=== PATIENT | male | born 1945 ===

== ENCOUNTER 2018-10-07 10:19 | Day surgery (SDC) | payer MEDICARE ==
[~2018-10-07] VITALS: Ht 177.8 cm; Wt 84.8 kg
[~2018-10-07 10:19] MED LIST: ALFU10 PO; ASPI81CH; ATORVASTATIN CA20 MG PO; CLOP75 PO; METO25ER; NEBI5 PO; PRAV20; SERT50 PO
--- NOTE | 2018-10-07 10:45 | NUR ---
10/07/18 1045 Gillian Prater 1 MISSWED IV IN RW BY АНДРЕЙ VALVE 1 MISSID IV IN LAC BY АНДРЕЙ VALVE 1 GOOD IV IN LFA BY [facility] PT TOW
--- NOTE | 2018-10-07 11:12 | NUR ---
10/07/18 1112 Tana Renteria PT OXYGEN SAT DROPPED TO LOWS 80S. DR BALDERAS NOTIFIED. SWITCHED O2 NC TO POM MASK PER DR BALDERAS. SECOND NURSE REQUESTED FOR AIRWAY SUPPORT. ORSC.DFT IN TO HELP. O2 JUMPED BACK UP TO 90S WITH POM MASK.
--- NOTE | 2018-10-07 11:56 | NUR ---
10/07/18 1156 Renetta New PATIENT VERY SLEEPY DUE TO THE USE OF FENTANYL AND VERSED FOR EGD SEDATION. PATIENT HAS SIGNS OF SIGNIFICANT OBSTRUCTIVE SLEEP APNEA. PATIENT'S VITALS ARE STABLE AND O2 SAT 96% ON ROOM AIR WHEN AWAKE BUT FALLS TO SLEEP AND OBSTRUCTS AND O2 SATS WILL GO DOWN TO 88-89%. CARE TRANSFERRED TO [facility] FOR LONGER STEP DOWN RECOVERY. PATIENT STABLE AND ANSWERS QUESTIONS APPROPRIATELY WHEN AWAKE BUT UNABLE TO STAY AWAKE AT THIS TIME.
== END 2018-10-07 12:45 | disposition home or self-care (01) ==
LOC: ORSCSDS 10:19
PROVIDERS: Internal Medicine Gastroenterology
PROC: 0DB58ZX Excision of Esophagus, Via Natural or Artificial Opening Endoscopic, Diagnostic (ICD-10-PCS; principal; 2018-10-07 11:45)
PROC: 0DB68ZX Excision of Stomach, Via Natural or Artificial Opening Endoscopic, Diagnostic (ICD-10-PCS; principal; 2018-10-07 11:45)
PROC: 0D758ZZ Dilation of Esophagus, Via Natural or Artificial Opening Endoscopic (ICD-10-PCS; principal; 2018-10-07 11:45)
DX: K21.9 Gastro-esophageal reflux disease without esophagitis (principal); K29.70 Gastritis, unspecified, without bleeding; R09.89 Other specified symptoms and signs involving the circulatory and respiratory systems; K20.9 Esophagitis, unspecified; K22.2 Esophageal obstruction; K44.9 Diaphragmatic hernia without obstruction or gangrene; Z87.891 Personal history of nicotine dependence; G47.33 Obstructive sleep apnea (adult) (pediatric); E03.9 Hypothyroidism, unspecified; I25.10 Atherosclerotic heart disease of native coronary artery without angina pectoris; E78.5 Hyperlipidemia, unspecified; Z79.899 Other long term (current) drug therapy; Z79.82 Long term (current) use of aspirin
CPT/HCPCS: 88305; 88342; J2250; J2704; J3010; J7120

== ENCOUNTER 2021-10-04 06:46 | Day surgery (SDC) | payer MEDICARE ==
[~2021-10-04] VITALS: Ht 177.8 cm; Wt 86.9 kg
[~2021-10-04 06:46] MED LIST changes: +AMLO5 PO; +Aspir 8181 MG PO
--- NOTE | 2021-10-04 07:33 | NUR ---
10/04/21 0733 CRISTINE RED 2 ATTEMPTS AT IV. FIRST ATTEMPT BY MA IN R HAND INFILTRATED. SECOND ATTEMPT AT IV BY MA IN R FOREARM SUCCESSFUL.
== END 2021-10-04 08:46 | disposition home or self-care (01) ==
LOC: ORSCSDS 06:46
PROVIDERS: Internal Medicine Gastroenterology
PROC: 0DJ08ZZ Inspection of Upper Intestinal Tract, Via Natural or Artificial Opening Endoscopic (ICD-10-PCS; principal; 2021-10-04 08:00)
DX: K21.00 Gastro-esophageal reflux disease with esophagitis, without bleeding (principal); K44.9 Diaphragmatic hernia without obstruction or gangrene; Z87.891 Personal history of nicotine dependence; I25.10 Atherosclerotic heart disease of native coronary artery without angina pectoris; E78.5 Hyperlipidemia, unspecified; I10 Essential (primary) hypertension; G47.33 Obstructive sleep apnea (adult) (pediatric); E03.9 Hypothyroidism, unspecified; Z79.899 Other long term (current) drug therapy
CPT/HCPCS: J2250; J2310; J3010; J7120

== ENCOUNTER → 2022-10-28 | Outpatient (CLI) | payer MEDICARE ==
[2022-10-28 18:09] LABS: Follicle Stimulating Hormone 11.6 mIU/ml (0.7-10.8); Luteinizing Hormone 6.1 mIU/ml (1.2-10.6)
== END | disposition home or self-care (01) ==
LOC: LAB SHORT 10:43 → LAB 10:43
PROVIDERS: Physician Assistant
DX: R68.82 Decreased libido (principal)
CPT/HCPCS: 83001; 83002; 84403

== ENCOUNTER → 2022-10-31 | Outpatient (CLI) | payer MEDICARE | LOC: LAB SHORT 14:09 → LAB 14:09 | DX: E23.2 Diabetes insipidus (principal); Z86.011 Personal history of benign neoplasm of the brain | CPT/HCPCS: 84146 ==

== ENCOUNTER → 2022-12-10 | Outpatient (CLI) | payer MEDICARE ==
[2022-12-10 21:16] LABS: Protein, Urine Quantitative 10.2 mg/dL (0.0-11.9)
== END | disposition home or self-care (01) ==
LOC: LAB 05:30 → LAB SHORT 05:30
PROVIDERS: Internal Medicine Nephrology
DX: N18.2 Chronic kidney disease, stage 2 (mild) (principal); D63.1 Anemia in chronic kidney disease; N25.81 Secondary hyperparathyroidism of renal origin; E55.9 Vitamin D deficiency, unspecified; E29.1 Testicular hypofunction; N40.1 Benign prostatic hyperplasia with lower urinary tract symptoms; D51.8 Other vitamin B12 deficiency anemias; D52.8 Other folate deficiency anemias; D50.9 Iron deficiency anemia, unspecified; R76.9 Abnormal immunological finding in serum, unspecified; R94.6 Abnormal results of thyroid function studies; R94.5 Abnormal results of liver function studies
CPT/HCPCS: 81050; 82108; 82570; 84156

== ENCOUNTER → 2023-07-07 | Outpatient (CLI) | payer MEDICARE ==
[2023-07-07 10:54] LABS: CHOL/HDL RATIO 2.6; Cholesterol 174 mg/dL (50-200); HDL Cholesterol 67 mg/dL (>39); LDL/HDL RATIO 1.3; Low Density Lipoprotein Chol 84 mg/dL (0-110); Triglycerides 114 mg/dL (30-160); Very Low Density Lipoprot Chol 22 mg/dL (6-32)
== END | disposition home or self-care (01) ==
LOC: LAB SHORT 09:34 → LAB 09:34
PROVIDERS: Student in an Organized Health Care Education/Training Program
DX: I25.10 Atherosclerotic heart disease of native coronary artery without angina pectoris (principal)
CPT/HCPCS: 36415; 80061

== ENCOUNTER 2025-01-20 01:19 | Emergency (ER) | payer MEDICARE ==
[~2025-01-20] VITALS: Ht 177.8 cm; Wt 79.4 kg
[~2025-01-20 01:19] MED LIST changes: +AMOCLA875; +AMOCLA875 PO; +AZIT250 PO; +B COMPLEX FORM0.4 MG; +CLOP75; +COD LIVER OIL; +CREATINE100 GM; +Crestor40 MG; +FLAX PO; +GLUC500; +GLUC500 PO; +ISOMON20 PO; +K-RIGHT SOFTGE1 EACH; +NITR.4SL SL; +OMEP20ER PO; +Vitamin D1000 UNI1 PO; +XYOSTED100 MG/0.1 SQ; +[UNRECOGNIZED DRUG - OTHER] PO
[2025-01-20 01:52] LABS: Source, Urine Clean Catch
[2025-01-20 02:22] LABS: Bilirubin, Urine Neg (Neg); Glucose Qualitative, Urine Neg (Neg); Ketones, Urine Neg (Neg); Leukocyte Esterase, Urine Neg (Neg); Protein, Urine 4+ (Neg); Specific Gravity, Urine 1.015 (1.003-1.022); Urobilinogen, Urine NORM (Normal)
[2025-01-20 02:40] LABS: Color, Urine Red (P-Yellow)
[2025-01-20 02:45] LABS: Red Blood Cells, Urine TNTC /hpf (0-2)
[2025-01-20 03:14] LABS: BASOPHILS ABSOLUTE AUTO 0.03 K/mm3 (0.00-0.23); BASOPHILS PERCENT AUTO 0 % (0-2); EOSINOPHILS ABSOLUTE AUTO 0.07 K/mm3 (0.00-0.68); EOSINOPHILS PERCENT AUTO 1 % (0-6); Hematocrit 41.5 % (37.0-53.0); Hemoglobin 14.1 g/dL (13.5-17.5); IMMATURE GRAN ABSOLUTE AUTO 0.07 K/mm3 (0.00-0.10); IMMATURE GRAN PERCENT AUTO 1 % (0-1); LYMPHOCYTES ABSOLUTE AUTO 0.69 K/mm3 (0.84-5.20); LYMPHOCYTES PERCENT AUTO 10 % (21-46); MONOCYTES ABSOLUTE AUTO 0.56 K/mm3 (0.16-1.47); MONOCYTES PERCENT AUTO 8 % (4-13); Mean Corpuscular HGB Conc 34.0 g/dL (31.5-36.5); Mean Corpuscular Volume 87 fL (80-100); NEUTROPHILS ABSOLUTE AUTO 5.62 K/mm3 (1.96-9.15); NEUTROPHILS PERCENT AUTO 80 % (41-73); NRBC ABSOLUTE 0.00 K/mm3 (0.00-0.02); NRBC Auto 0.0 /100 WBC (0.0-0.2); Platelet Count 213 K/mm3 (150-400); RDW Coefficient Variation 13.8 % (11.7-14.2); RDW Standard Deviation 44.6 fL (35.1-46.3)
[2025-01-20 03:31] LABS: Prothrombin Time Results 11.3 Sec (9.7-11.5)
[2025-01-20 03:52] LABS: Alanine Aminotransfer (ALT/SGP 26.0 U/L (12-78); Albumin, Blood 3.7 g/dL (3.4-5.0); Albumin/Globulin Ratio 1.1 (0.8-1.8); Anion Gap 6.0 mmol/L (3-11); Aspartate Aminotrans (AST/SGOT 11.0 U/L (12-37); Bilirubin, Total 0.6 mg/dL (0.1-1.0); Blood Urea Nitrogen 23.0 mg/dL (8-24); CO2, Blood 29.0 mmol/L (21-32); Calcium, Blood 9.7 mg/dL (8.5-10.1); Chloride, Blood 103.0 mmol/L (98-108); Creatinine, Blood 1.25 mg/dL (0.60-1.20); Globulin, Blood 3.4 g/dL (2.2-4.0); Glucose, Blood 114.0 mg/dL (70-99); Potassium, Blood 4.4 mmol/L (3.5-5.5); Sodium, Blood 134.0 mmol/L (136-145); Total Protein, Blood 7.1 g/dL (6.4-8.2)
[2025-01-20 05:22] VITALS: BP 139/63
== END 2025-01-20 05:26 | disposition home or self-care (01) ==
LOC: ER 01:19
PROVIDERS: Student in an Organized Health Care Education/Training Program
DX: R33.9 Retention of urine, unspecified (principal); C64.1 Malignant neoplasm of right kidney, except renal pelvis; R31.9 Hematuria, unspecified; R78.5 Finding of other psychotropic drug in blood; I10 Essential (primary) hypertension; Z87.891 Personal history of nicotine dependence; Z79.899 Other long term (current) drug therapy; Z79.02 Long term (current) use of antithrombotics/antiplatelets; Z88.4 Allergy status to anesthetic agent
CPT/HCPCS: 51703; 74177; 80053; 81001; 85025; 85610; 85730; 99283-25; Q9967

== ENCOUNTER 2025-01-22 03:45 | Emergency (ER) | payer MEDICARE ==
[~2025-01-22] VITALS: Ht 177.8 cm; Wt 79.4 kg
[~2025-01-22 03:45] MED LIST changes: -B COMPLEX FORM0.4 MG; +B COMPLEX FORM0.4 MG PO; -K-RIGHT SOFTGE1 EACH; +K-RIGHT SOFTGE1 EACH PO
[2025-01-22 03:56] VITALS: BP 136/60
== END 2025-01-22 04:50 | disposition home or self-care (01) ==
LOC: ER 03:45
DX: T83.018A Breakdown (mechanical) of other urinary catheter, initial encounter (principal); Y84.6 Urinary catheterization as the cause of abnormal reaction of the patient, or of later complication, without mention of misadventure at the time of the procedure; R33.9 Retention of urine, unspecified; R31.9 Hematuria, unspecified; I10 Essential (primary) hypertension; Z87.891 Personal history of nicotine dependence; Z88.8 Allergy status to other drugs, medicaments and biological substances; Z79.899 Other long term (current) drug therapy; T83.091A Other mechanical complication of indwelling urethral catheter, initial encounter; T83.84XA Pain due to genitourinary prosthetic devices, implants and grafts, initial encounter; E78.5 Hyperlipidemia, unspecified; K21.9 Gastro-esophageal reflux disease without esophagitis; Z79.02 Long term (current) use of antithrombotics/antiplatelets; Z79.890 Hormone replacement therapy; Z88.4 Allergy status to anesthetic agent
CPT/HCPCS: 99283

== ENCOUNTER → 2025-01-23 | Outpatient (CLI) | payer MEDICARE ==
[~2025-01-23] MED LIST changes: +AMOX-CLAV200 MG/51 PO; +CEPH500 PO; +HYDHCL25 PO
[2025-01-23 15:17] LABS: BASOPHILS ABSOLUTE AUTO 0.04 K/mm3 (0.00-0.23); BASOPHILS PERCENT AUTO 0 % (0-2); EOSINOPHILS ABSOLUTE AUTO 0.09 K/mm3 (0.00-0.68); EOSINOPHILS PERCENT AUTO 1 % (0-6); Hematocrit 39.7 % (37.0-53.0); Hemoglobin 13.7 g/dL (13.5-17.5); IMMATURE GRAN ABSOLUTE AUTO 0.10 K/mm3 (0.00-0.10); IMMATURE GRAN PERCENT AUTO 1 % (0-1); LYMPHOCYTES ABSOLUTE AUTO 0.99 K/mm3 (0.84-5.20); LYMPHOCYTES PERCENT AUTO 6 % (21-46); MONOCYTES ABSOLUTE AUTO 1.20 K/mm3 (0.16-1.47); MONOCYTES PERCENT AUTO 8 % (4-13); Mean Corpuscular HGB Conc 34.5 g/dL (31.5-36.5); Mean Corpuscular Volume 86 fL (80-100); NEUTROPHILS ABSOLUTE AUTO 13.38 K/mm3 (1.96-9.15); NEUTROPHILS PERCENT AUTO 85 % (41-73); NRBC ABSOLUTE 0.00 K/mm3 (0.00-0.02); NRBC Auto 0.0 /100 WBC (0.0-0.2); Platelet Count 229 K/mm3 (150-400); RDW Coefficient Variation 14.0 % (11.7-14.2); RDW Standard Deviation 43.8 fL (35.1-46.3)
[2025-01-23 15:26] LABS: Alanine Aminotransfer (ALT/SGP 29.0 U/L (12-78); Albumin, Blood 3.8 g/dL (3.4-5.0); Albumin/Globulin Ratio 1.0 (0.8-1.8); Anion Gap 13.0 mmol/L (6-16); Aspartate Aminotrans (AST/SGOT 16.0 U/L (12-37); Bilirubin, Total 0.7 mg/dL (0.1-1.0); Blood Urea Nitrogen 21.0 mg/dL (8-24); CO2, Blood 26.0 mmol/L (21-32); Calcium, Blood 9.9 mg/dL (8.5-10.1); Chloride, Blood 97.0 mmol/L (98-108); Creatinine, Blood 1.33 mg/dL (0.60-1.20); Globulin, Blood 4.0 g/dL (2.2-4.0); Glucose, Blood 102.0 mg/dL (70-99); Potassium, Blood 4.3 mmol/L (3.5-5.5); Sodium, Blood 132.0 mmol/L (136-145); Total Protein, Blood 7.8 g/dL (6.4-8.2)
== END ==
LOC: LAB SHORT 15:11 → LAB 15:11
PROVIDERS: Family Medicine
DX: R50.9 Fever, unspecified (principal)
CPT/HCPCS: 80053; 85025

== ENCOUNTER 2025-01-29 09:41 | Emergency (ER) | payer MEDICARE ==
[~2025-01-29] VITALS: Ht 177.8 cm; Wt 79.4 kg
[~2025-01-29 09:41] MED LIST changes: -AMOX-CLAV200 MG/51 PO; -CEPH500 PO; -HYDHCL25 PO
[2025-01-29] MEDS ORDERED: Pantoprazole Sodium 40 MG Injection IV ONE (10:25)
[2025-01-29 10:28] LABS: BASOPHILS ABSOLUTE AUTO 0.04 K/mm3 (0.00-0.23); BASOPHILS PERCENT AUTO 1 % (0-2); EOSINOPHILS ABSOLUTE AUTO 0.11 K/mm3 (0.00-0.68); EOSINOPHILS PERCENT AUTO 1 % (0-6); Hematocrit 36.5 % (37.0-53.0); Hemoglobin 12.3 g/dL (13.5-17.5); IMMATURE GRAN ABSOLUTE AUTO 0.19 K/mm3 (0.00-0.10); IMMATURE GRAN PERCENT AUTO 2 % (0-1); LYMPHOCYTES ABSOLUTE AUTO 0.97 K/mm3 (0.84-5.20); LYMPHOCYTES PERCENT AUTO 12 % (21-46); MONOCYTES ABSOLUTE AUTO 0.65 K/mm3 (0.16-1.47); MONOCYTES PERCENT AUTO 8 % (4-13); Mean Corpuscular HGB Conc 33.7 g/dL (31.5-36.5); Mean Corpuscular Volume 87 fL (80-100); NEUTROPHILS ABSOLUTE AUTO 6.32 K/mm3 (1.96-9.15); NEUTROPHILS PERCENT AUTO 76 % (41-73); NRBC ABSOLUTE 0.00 K/mm3 (0.00-0.02); NRBC Auto 0.0 /100 WBC (0.0-0.2); Platelet Count 303 K/mm3 (150-400); RDW Coefficient Variation 13.2 % (11.7-14.2); RDW Standard Deviation 41.8 fL (35.1-46.3)
[2025-01-29 10:43] LABS: Alanine Aminotransfer (ALT/SGP 34.0 U/L (12-78); Albumin, Blood 2.9 g/dL (3.4-5.0); Albumin/Globulin Ratio 0.7 (0.8-1.8); Anion Gap 9.0 mmol/L (3-11); Aspartate Aminotrans (AST/SGOT 20.0 U/L (12-37); Bilirubin, Total 0.7 mg/dL (0.1-1.0); Blood Urea Nitrogen 28.0 mg/dL (8-24); CO2, Blood 27.0 mmol/L (21-32); Calcium, Blood 9.4 mg/dL (8.5-10.1); Chloride, Blood 101.0 mmol/L (98-108); Creatinine, Blood 1.75 mg/dL (0.60-1.20); Globulin, Blood 4.1 g/dL (2.2-4.0); Glucose, Blood 149.0 mg/dL (70-99); Potassium, Blood 4.2 mmol/L (3.5-5.5); Sodium, Blood 133.0 mmol/L (136-145); Total Protein, Blood 7.0 g/dL (6.4-8.2)
[2025-01-29 11:30] VITALS: BP 162/74
== END 2025-01-29 11:48 | disposition home or self-care (01) ==
LOC: ER 09:41
PROVIDERS: Emergency Medicine
DX: K21.9 Gastro-esophageal reflux disease without esophagitis (principal); R06.6 Hiccough; E78.5 Hyperlipidemia, unspecified; I10 Essential (primary) hypertension; Z87.891 Personal history of nicotine dependence
CPT/HCPCS: 71046; 80053; 84484; 85025; 93005; 93010; 96374; 99285-25; A9270; J2470

== ENCOUNTER → 2025-01-30 | Outpatient (CLI) | payer MEDICARE ==
[~2025-01-30] MED LIST changes: +AMOX-CLAV200 MG/51 PO; +CEPH500 PO; +HYDHCL25 PO
[2025-01-30 13:19] LABS: BASOPHILS ABSOLUTE AUTO 0.07 K/mm3 (0.00-0.23); BASOPHILS PERCENT AUTO 1 % (0-2); EOSINOPHILS ABSOLUTE AUTO 0.16 K/mm3 (0.00-0.68); EOSINOPHILS PERCENT AUTO 2 % (0-6); Hematocrit 36.9 % (37.0-53.0); Hemoglobin 13.1 g/dL (13.5-17.5); IMMATURE GRAN ABSOLUTE AUTO 0.22 K/mm3 (0.00-0.10); IMMATURE GRAN PERCENT AUTO 2 % (0-1); LYMPHOCYTES ABSOLUTE AUTO 1.03 K/mm3 (0.84-5.20); LYMPHOCYTES PERCENT AUTO 11 % (21-46); MONOCYTES ABSOLUTE AUTO 0.77 K/mm3 (0.16-1.47); MONOCYTES PERCENT AUTO 8 % (4-13); Mean Corpuscular HGB Conc 35.5 g/dL (31.5-36.5); Mean Corpuscular Volume 84 fL (80-100); NEUTROPHILS ABSOLUTE AUTO 7.36 K/mm3 (1.96-9.15); NEUTROPHILS PERCENT AUTO 77 % (41-73); NRBC ABSOLUTE 0.00 K/mm3 (0.00-0.02); NRBC Auto 0.0 /100 WBC (0.0-0.2); Platelet Count 301 K/mm3 (150-400); RDW Coefficient Variation 13.0 % (11.7-14.2); RDW Standard Deviation 39.9 fL (35.1-46.3)
== END ==
LOC: LAB SHORT 13:10 → LAB 13:10
PROVIDERS: Family Medicine
DX: K92.1 Melena (principal); R82.90 Unspecified abnormal findings in urine
CPT/HCPCS: 85025; 87077; 87086; 87186

== ENCOUNTER 2025-01-31 00:04 | Emergency (ER) | payer MEDICARE ==
[~2025-01-31] VITALS: Ht 177.8 cm; Wt 76.2 kg
[~2025-01-31 00:04] MED LIST changes: -AMOX-CLAV200 MG/51 PO; -CEPH500 PO; -HYDHCL25 PO
[2025-01-31 00:28] LABS: pH Blood Venous 7.55 (7.34-7.37)
[2025-01-31 00:29] LABS: BASOPHILS ABSOLUTE AUTO 0.07 K/mm3 (0.00-0.23); BASOPHILS PERCENT AUTO 1 % (0-2); EOSINOPHILS ABSOLUTE AUTO 0.18 K/mm3 (0.00-0.68); EOSINOPHILS PERCENT AUTO 2 % (0-6); Hematocrit 40.3 % (37.0-53.0); Hemoglobin 14.0 g/dL (13.5-17.5); IMMATURE GRAN ABSOLUTE AUTO 0.33 K/mm3 (0.00-0.10); IMMATURE GRAN PERCENT AUTO 3 % (0-1); LYMPHOCYTES ABSOLUTE AUTO 1.67 K/mm3 (0.84-5.20); LYMPHOCYTES PERCENT AUTO 17 % (21-46); MONOCYTES ABSOLUTE AUTO 0.80 K/mm3 (0.16-1.47); MONOCYTES PERCENT AUTO 8 % (4-13); Mean Corpuscular HGB Conc 34.7 g/dL (31.5-36.5); Mean Corpuscular Volume 84 fL (80-100); NEUTROPHILS ABSOLUTE AUTO 6.94 K/mm3 (1.96-9.15); NEUTROPHILS PERCENT AUTO 70 % (41-73); NRBC ABSOLUTE 0.00 K/mm3 (0.00-0.02); NRBC Auto 0.0 /100 WBC (0.0-0.2); Platelet Count 342 K/mm3 (150-400); RDW Coefficient Variation 13.2 % (11.7-14.2); RDW Standard Deviation 40.6 fL (35.1-46.3)
[2025-01-31] MEDS ORDERED: LORazepam 2 MG/ML 1ML Injection IV ONE (00:35)
[2025-01-31 00:44] LABS: Alanine Aminotransfer (ALT/SGP 33.0 U/L (12-78); Albumin, Blood 3.5 g/dL (3.4-5.0); Albumin/Globulin Ratio 0.8 (0.8-1.8); Anion Gap 13.0 mmol/L (3-11); Aspartate Aminotrans (AST/SGOT 17.0 U/L (12-37); Bilirubin, Total 0.8 mg/dL (0.1-1.0); Blood Urea Nitrogen 28.0 mg/dL (8-24); CO2, Blood 22.0 mmol/L (21-32); Calcium, Blood 9.5 mg/dL (8.5-10.1); Chloride, Blood 99.0 mmol/L (98-108); Creatinine, Blood 1.6 mg/dL (0.60-1.20); Globulin, Blood 4.2 g/dL (2.2-4.0); Glucose, Blood 110.0 mg/dL (70-99); Potassium, Blood 4.3 mmol/L (3.5-5.5); Sodium, Blood 130.0 mmol/L (136-145); Total Protein, Blood 7.7 g/dL (6.4-8.2)
[2025-01-31 02:30] VITALS: BP 119/96
[2025-01-31] MEDS ORDERED: HYDHCL25 PO ×2 (02:34→23:40)
[2025-01-31] MEDS ORDERED: CEPH500 PO (23:40)
== END 2025-01-31 02:58 | disposition home or self-care (01) ==
LOC: ER 00:04
PROVIDERS: Emergency Medicine
DX: R06.02 Shortness of breath (principal); E87.1 Hypo-osmolality and hyponatremia; I13.10 Hypertensive heart and chronic kidney disease without heart failure, with stage 1 through stage 4 chronic kidney disease, or unspecified chronic kidney disease; N18.2 Chronic kidney disease, stage 2 (mild); E03.9 Hypothyroidism, unspecified; R73.03 Prediabetes; K21.9 Gastro-esophageal reflux disease without esophagitis; I25.119 Atherosclerotic heart disease of native coronary artery with unspecified angina pectoris; Z88.8 Allergy status to other drugs, medicaments and biological substances; Z79.899 Other long term (current) drug therapy; Z87.891 Personal history of nicotine dependence
CPT/HCPCS: 71046; 80053; 82803; 85025; 93005; 93010; 96374; 99285-25; A9270; J2060

== ENCOUNTER 2025-01-31 14:10 | Inpatient (IN) | payer MEDICARE ==
[~2025-01-31] VITALS: Ht 177.8 cm; Wt 74.8 kg
[~2025-01-31 14:10] MED LIST changes: +HYDHCL25 PO
[2025-01-31] MEDS ORDERED: Glycopyrrolate 0.2 MG/ML 5ML VIAL IV ONE (17:22)
[2025-01-31 17:57] LABS: BASOPHILS ABSOLUTE AUTO 0.09 K/mm3 (0.00-0.23); BASOPHILS PERCENT AUTO 1 % (0-2); EOSINOPHILS ABSOLUTE AUTO 0.12 K/mm3 (0.00-0.68); EOSINOPHILS PERCENT AUTO 1 % (0-6); Hematocrit 39.6 % (37.0-53.0); Hemoglobin 13.4 g/dL (13.5-17.5); IMMATURE GRAN ABSOLUTE AUTO 0.41 K/mm3 (0.00-0.10); IMMATURE GRAN PERCENT AUTO 4 % (0-1); LYMPHOCYTES ABSOLUTE AUTO 0.97 K/mm3 (0.84-5.20); LYMPHOCYTES PERCENT AUTO 9 % (21-46); MONOCYTES ABSOLUTE AUTO 0.67 K/mm3 (0.16-1.47); MONOCYTES PERCENT AUTO 6 % (4-13); Mean Corpuscular HGB Conc 33.8 g/dL (31.5-36.5); Mean Corpuscular Volume 87 fL (80-100); NEUTROPHILS ABSOLUTE AUTO 9.11 K/mm3 (1.96-9.15); NEUTROPHILS PERCENT AUTO 80 % (41-73); NRBC ABSOLUTE 0.00 K/mm3 (0.00-0.02); NRBC Auto 0.0 /100 WBC (0.0-0.2); Platelet Count 338 K/mm3 (150-400); RDW Coefficient Variation 13.2 % (11.7-14.2); RDW Standard Deviation 42.2 fL (35.1-46.3)
[2025-01-31 18:21] LABS: Alanine Aminotransfer (ALT/SGP 32.0 U/L (12-78); Albumin, Blood 3.6 g/dL (3.4-5.0); Albumin/Globulin Ratio 0.9 (0.8-1.8); Anion Gap 9.0 mmol/L (3-11); Aspartate Aminotrans (AST/SGOT 14.0 U/L (12-37); Bilirubin, Total 0.5 mg/dL (0.1-1.0); Blood Urea Nitrogen 30.0 mg/dL (8-24); CO2, Blood 25.0 mmol/L (21-32); Calcium, Blood 9.4 mg/dL (8.5-10.1); Chloride, Blood 99.0 mmol/L (98-108); Creatinine, Blood 1.62 mg/dL (0.60-1.20); Globulin, Blood 4.1 g/dL (2.2-4.0); Glucose, Blood 139.0 mg/dL (70-99); Potassium, Blood 4.4 mmol/L (3.5-5.5); Sodium, Blood 129.0 mmol/L (136-145); Total Protein, Blood 7.7 g/dL (6.4-8.2)
[2025-01-31] MEDS ORDERED: Pantoprazole Sodium 40 MG Injection IV SCH (19:00)
[2025-01-31] MEDS ORDERED: NS 1,000 ML IV SCH (19:30)
[2025-01-31] MEDS ORDERED: Ondansetron HCl 2 MG / ML 2ML Vial IV PRN (19:35)
[2025-01-31] MEDS ORDERED: FLU VACC TS2025(65UP)/MF59C/PF 45 MCG/0.5 ML SYRINGE IM SCH (19:35)
[2025-01-31] MEDS ORDERED: FentaNYL Citrate 50 MCG/ML 2 ML Injection IV PRN (19:35)
[2025-01-31] MEDS ORDERED: Labetalol HCL 5 MG/ML 4ML Injection (Single Dose) IV PRN (19:35)
[2025-01-31] MEDS ORDERED: FentaNYL Citrate 50 MCG/ML 2 ML Injection IV ONE (20:00)
[2025-01-31] MEDS ORDERED: Labetalol HCL 5 MG/ML 4ML Injection (Single Dose) IV ONE (20:00)
[2025-01-31 20:38] LABS: pH Blood Venous 7.39 (7.34-7.37)
--- NOTE | 2025-01-31 21:25 | NUR ---
RECEIVED REPORT FROM [facility] CHEW IN ER TO PT TO TRANSFER TO ROOM 324.
[2025-01-31 21:45] VITALS: BP 161/89
[2025-01-31] MEDS ORDERED: LORazepam 2 MG/ML 1ML Injection IV PRN (22:50)
[2025-01-31] MEDS ORDERED: LORazepam 2 MG/ML 1ML Injection IV ONE (23:00)
[2025-01-31 23:25] VITALS: BP 139/66
[2025-01-31] MEDS ORDERED: CEPH500 PO (23:40)
[2025-01-31] MEDS ORDERED: HYDHCL25 PO (23:40)
[2025-02-01] VITALS (9 sets, daily range): BP systolic 99–146; BP diastolic 46–78
[2025-02-01] MEDS ORDERED: HydrALAZINE HCl 20 MG / ML 1ML Vial IV PRN (06:00)
--- NOTE | 2025-02-01 06:25 | NUR ---
SHIFT SUMMARY PT ARRIVED TO ROOM 324 AT 2138 AND WAS ORIENTED TO HIS ROOM. HE WAS ABLE TO AMBULATE TO HIS BED ON HIS OWN. HE IS A&OX4. ABLE TO MAKE ALL NEEDS KNOWN. WAS ANXIOUS AT START OF CARE BUT HAS BEEN ABLE TO RELAX AND SLEPT A GOOD PORTION OF THE NIGHT. HE HAD AN EPISODE OF WHAT APPEARED TO BE HICCUPS THAT RESOLVED AFTER DRINKING SOME LEMON MUSCOGEE SODA. HE CURRENTLY HAS NS RUNNING AT 125 ML/HR. HE IS CURRENTLY SITTING UP IN HIS BED AT LOWEST POSITION WATCHING TV WITH CALL LIGHT WITHIN REACH.
[2025-02-01] MEDS ORDERED: CefTRIAXone Sodium 1,000 MG in NS 100 ML IV SCH (12:30)
[2025-02-01] MEDS ORDERED: NS 500 ML IV SCH (13:55)
--- NOTE | 2025-02-01 16:21 | NUR ---
02/01/25 1621 Jose Jaime MONITOR INTACT WITH CONTINUOUS PULSE OXIMETRY, CONTINUOUS END TITAL CO2, 3-LEAD EKG AND INTERMITTENT BLOOD PRESSURE. 3-LEAD EKG REVIEWED WITH PHYSICIAN PRIOR TO START OF PROCEDURE. O2 VIA POM INTACT THROUGHOUT SEDATION/PROCEDURE. GLASSES REMOVED FOR PROCEDURE AND PLACED IN SMALL PLASTIC BAG WITH PT HEALTHCARE MANAGEMENT. TELE BOX LEFT IN PT'S ROOM NOT BROUGHT TO DAY SURGERY.
[2025-02-01] MEDS ORDERED: Isosorbide Mononitrate 20 MG TAB PO SCH (17:00)
--- NOTE | 2025-02-01 17:27 | NUR ---
SHIFT SUMMARY PT AOX4, SBA TO THE BR. EGD DONE THIS SHIFT. PT TOLERATED IT WELL. PT REPOSITIONS SELF IN BED, CALLS AND MAKES HIS NEEDS KNOWN. NO EVENTS PER TELE. POST-OP VITAL SIGNS IN PROGRESS. POSSIBLE DC TOMORROW. CALL LIGHT WITHIN REACH, BED LOCKED AND IN THE LOWEST POSITION. WILL REPORT TO ONCOMING NURSE.
--- NOTE | 2025-02-02 04:07 | NUR ---
SHIFT SUMMARY ADMITTED FOR CHEST PAIN WHEN EATING/WEIGHT LOSS. FULL CODE. ALSO FOUND TO HAVE A UTI. IV ANTIB RX ARE SCHEDULED. EGD PERFORMED ON PREVIOUS SHIFT, RESULTS NOT AVAILABLE TO ME YET. GI CONSULT IS DR. BALDERAS. TELEMETRY: AILIN @ 57 BPM, EPISODES OF 30'S BPM REPORTED ON THIS SHIFT AND ON PREVIOUS SHIFTS. A&O X4, INDEPENDENT IN ROOM ON RA. IV ANTIB RX ARE SCHEDULED. HE LIVES WITH HIS AT HOME. HX OF RENAL CANCER, RIGHT NEPHRECTOMY 2 WEEKS AGO.
[2025-02-02 04:13] VITALS: BP 123/67
[2025-02-02 05:00] LABS: BASOPHILS ABSOLUTE AUTO 0.07 K/mm3 (0.00-0.23); BASOPHILS PERCENT AUTO 1 % (0-2); EOSINOPHILS ABSOLUTE AUTO 0.31 K/mm3 (0.00-0.68); EOSINOPHILS PERCENT AUTO 4 % (0-6); Hematocrit 32.7 % (37.0-53.0); Hemoglobin 11.2 g/dL (13.5-17.5); IMMATURE GRAN ABSOLUTE AUTO 0.41 K/mm3 (0.00-0.10); IMMATURE GRAN PERCENT AUTO 5 % (0-1); LYMPHOCYTES ABSOLUTE AUTO 1.65 K/mm3 (0.84-5.20); LYMPHOCYTES PERCENT AUTO 18 % (21-46); MONOCYTES ABSOLUTE AUTO 0.67 K/mm3 (0.16-1.47); MONOCYTES PERCENT AUTO 8 % (4-13); Mean Corpuscular HGB Conc 34.3 g/dL (31.5-36.5); Mean Corpuscular Volume 88 fL (80-100); NEUTROPHILS ABSOLUTE AUTO 5.87 K/mm3 (1.96-9.15); NEUTROPHILS PERCENT AUTO 65 % (41-73); NRBC ABSOLUTE 0.00 K/mm3 (0.00-0.02); NRBC Auto 0.0 /100 WBC (0.0-0.2); Platelet Count 280 K/mm3 (150-400); RDW Coefficient Variation 13.6 % (11.7-14.2); RDW Standard Deviation 43.7 fL (35.1-46.3)
[2025-02-02 05:22] LABS: Alanine Aminotransfer (ALT/SGP 24.0 U/L (12-78); Albumin, Blood 2.7 g/dL (3.4-5.0); Albumin/Globulin Ratio 0.8 (0.8-1.8); Anion Gap 8.0 mmol/L (3-11); Aspartate Aminotrans (AST/SGOT 14.0 U/L (12-37); Bilirubin, Total 0.3 mg/dL (0.1-1.0); Blood Urea Nitrogen 28.0 mg/dL (8-24); CO2, Blood 25.0 mmol/L (21-32); Calcium, Blood 9.2 mg/dL (8.5-10.1); Chloride, Blood 104.0 mmol/L (98-108); Creatinine, Blood 1.7 mg/dL (0.60-1.20); Globulin, Blood 3.3 g/dL (2.2-4.0); Glucose, Blood 108.0 mg/dL (70-99); Potassium, Blood 4.5 mmol/L (3.5-5.5); Sodium, Blood 132.0 mmol/L (136-145); Total Protein, Blood 6.0 g/dL (6.4-8.2)
[2025-02-02 07:26] VITALS: BP 129/63
--- NOTE | 2025-02-02 08:08 | NUR ---
PHYSICIAN CONTACT PT'S HR REMAINS IN THE 40-50'S, DR. NUNO NOTIFIED. REVIEWED BLOOD PRESSURE MEDICATIONS WITH THE PROVIDER, DR. NUNO SAID TO ONLY GIVE THE NORVASC THIS AM AND TO HOLD THE OTHER THREE MEDICATIONS. SEE EMAR.
[2025-02-02 10:53] VITALS: BP 141/64
[2025-02-02] MEDS ORDERED: OMEP20ER PO (14:30)
[2025-02-02] MEDS ORDERED: AMOX-CLAV200 MG/51 PO (14:31)
--- NOTE | 2025-02-02 15:14 | NUR ---
DISCHARGE NOTE PT DISCHARGED TO HOME, DROVE HIMSELF HOME. IV REMOVED. TELE RETURNED. DISCHARGE EDUCATION AND INFORMATION REVIEWED WITH THE PT. PERSONAL MEDICATIONS FROM THE PHARMACY RETURNED TO THE PT. PERSONAL BELONGINGS RETURNED. MEDICATIONS FAXED TO THE PHARMACY OF HIS CHOICE.
== END 2025-02-02 15:39 | disposition home or self-care (01) | DRG 381 ==
LOC: ER 14:10 → MEDS 14:11
PROVIDERS: Family Medicine; Internal Medicine Gastroenterology; Nurse Practitioner Acute Care; Physician Assistant; ADMIT Student in an Organized Health Care Education/Training Program
PROC: 3E03329 Introduction of Other Anti-infective into Peripheral Vein, Percutaneous Approach (ICD-10-PCS; 2025-02-01)
PROC: 5A09357 Assistance with Respiratory Ventilation, Less than 24 Consecutive Hours, Continuous Positive Airway Pressure (ICD-10-PCS; 2025-02-01)
PROC: 0DB58ZX Excision of Esophagus, Via Natural or Artificial Opening Endoscopic, Diagnostic (ICD-10-PCS; principal; 2025-02-01 10:15)
DX: K22.70 Barrett's esophagus without dysplasia (principal); E87.1 Hypo-osmolality and hyponatremia; N39.0 Urinary tract infection, site not specified; T83.511A Infection and inflammatory reaction due to indwelling urethral catheter, initial encounter; E87.3 Alkalosis; K21.00 Gastro-esophageal reflux disease with esophagitis, without bleeding; B96.20 Unspecified Escherichia coli [E. coli] as the cause of diseases classified elsewhere; Y73.2 Prosthetic and other implants, materials and accessory gastroenterology and urology devices associated with adverse incidents; I25.10 Atherosclerotic heart disease of native coronary artery without angina pectoris; I12.9 Hypertensive chronic kidney disease with stage 1 through stage 4 chronic kidney disease, or unspecified chronic kidney disease; K44.9 Diaphragmatic hernia without obstruction or gangrene; E03.9 Hypothyroidism, unspecified; E78.5 Hyperlipidemia, unspecified; G47.33 Obstructive sleep apnea (adult) (pediatric); N18.30 Chronic kidney disease, stage 3 unspecified; E88.810 Metabolic syndrome; E86.1 Hypovolemia; F32.A Depression, unspecified; Z88.8 Allergy status to other drugs, medicaments and biological substances; Z79.890 Hormone replacement therapy; Z79.02 Long term (current) use of antithrombotics/antiplatelets; Z79.1 Long term (current) use of non-steroidal anti-inflammatories (NSAID); Z95.5 Presence of coronary angioplasty implant and graft; Z87.891 Personal history of nicotine dependence; Z86.0101 Personal history of adenomatous and serrated colon polyps; Z85.528 Personal history of other malignant neoplasm of kidney; Z90.5 Acquired absence of kidney; K92.1 Melena; R82.90 Unspecified abnormal findings in urine
CPT/HCPCS: 36415; 71046; 71250; 74150; 80053; 82803; 84484; 85025; 87086; 87186; 88305; 93005; 93010; 94660; 94762; 96361; 96365; 96374; 96375; 96376; 99285-25; A9270; G0378; J0696; J2060; J2470; J2704; J3010; J7030; J7040